=== PATIENT | male | born 1990 | race Caucasian/White ===

== ENCOUNTER 2021-03-30 21:31 | Emergency (ER) | payer SELFPAY ==
[~2021-03-30] VITALS: Ht 188 cm; Wt 166.6 kg
[2021-03-30 21:33] VITALS: BP 134/77
[2021-03-30 22:14] LABS: BASOPHILS % (AUTO) 1 % (0-1); EOSINOPHILS % (AUTO) 0 % (1-7); LYMPHOCYTES % (AUTO) 20 % (22-44); MEAN CORPUSCULAR HEMOGLOBIN 31.6 pg (27.5-34.5); MEAN CORPUSCULAR HGB CONC 36.5 g/dL (33.2-36.2); MEAN PLATELET VOLUME 8.2 fL (7.4-10.4); MONOCYTES % (AUTO) 13 % (2-9); NEUTROPHILS % (AUTO) 67 % (42-75); PLATELET COUNT 122 x10^3/uL (130-400); RED BLOOD COUNT 5.14 x10^6/uL (4.38-5.82); RED CELL DISTRIBUTION WIDTH 12.8 % (9.4-14.8)
[2021-03-30 22:26] LABS: ANION GAP 8 mmol/L (5-15); CHLORIDE 100 mmol/L (98-107); CREATININE 0.99 mg/dL (0.7-1.3)
--- NOTE | 2021-03-30 22:55 | NUR ---
MD BAZAN ASSESSING PATIENT IN TRIAGE AT THIS TIME.
== END 2021-03-30 23:05 ==
LOC: ED 23:00
DX: U07.1 COVID-19 (principal)
CPT/HCPCS: 36415; 80048; 85025; 99283; U0003; U0005